=== PATIENT | male | born 1940 | race Two or more races ===

== ENCOUNTER 2020-06-25 18:38 | Inpatient (IN) | payer OTHER ==
[~2020-06-25] VITALS: Ht 175.3 cm; Wt 103.5 kg
[~2020-06-25 18:38] MED LIST: FURO1TAB31; METO25TA36; POTA8TAB2
[2020-06-25] MEDS ORDERED: FUROSEMIDE 40 MG/4 ML VIAL IV ONE (18:45)
[2020-06-25] MEDS ORDERED: DexAMETHasone SOD PHOS 10MG/1ML VIAL INJ IV ONE (18:45)
[2020-06-25 18:50] VITALS: BP 129/71
[2020-06-25 19:08] LABS: Basophils # (auto) 0.1 10 ^3/uL (0-0.2); Basophils % (auto) 0.8 % (0.0-2.0); Eosinophils # (auto) 0.5 10 ^3/uL (0-0.8); Eosinophils % (auto) 3.7 % (0.0-7.0); Hematocrit 44.6 % (41.0-53.0); Hemoglobin 14.8 g/dL (13.5-17.5); Lymphocytes # (auto) 4.7 10 ^3/uL (0.4-5.4); Lymphocytes % (auto) 36.5 % (10.0-50.0); Mean Corpuscular Hemoglobin 33.1 pg (28.0-32.0); Mean Corpuscular Hgb Conc. 33.3 g/dL (32.0-36.0); Mean Corpuscular Volume 99.4 fL (80.0-100.0); Monocytes # (auto) 1.1 10 ^3/uL (0-1.3); Monocytes % (auto) 8.1 % (0.0-12.0); Neutrophils # (auto) 6.6 10 ^3/uL (1.6-8.6); Neutrophils % (auto) 50.9 % (37.0-80.0); Nucleated Red Blood Cells % 0.1 %; Red Blood Cells 4.49 10^6/uL (4.5-5.90); Red Cell Distribution Width 16.2 % (11.8-14.3)
[2020-06-25 19:25] LABS: Potassium 3.7 mmol/L (3.5-5.1)
[2020-06-25 19:26] LABS: Lactic Acid w/Reflex 5.8 mmol/L (0.4-2.0)
[2020-06-25 19:39] LABS: Albumin 3.9 g/dL (3.4-5.0); BUN/Creatinine Ratio 19.2; Bilirubin, Total 0.5 mg/dL (0.2-1.0); Calcium 8.5 mg/dL (8.5-10.1); Magnesium 2.2 mg/dL (1.6-2.6); Total Protein 7.7 g/dL (6.4-8.2)
[2020-06-25 19:42] LABS: Urine Bacteria NONE SEEN /hpf (None Seen); Urine Blood Negative /uL (Negative); Urine Hyaline Cast FEW /lpf (0 - 2); Urine Specific Gravity 1.013 (1.001-1.035); Urine WBC 1 /hpf (0 - 3)
[2020-06-25] MEDS ORDERED: DOXYCYCLINE 100MG/250ML 250 ML IV ONE (20:00)
[2020-06-25] MEDS ORDERED: AZITHROMYCIN 500MG/ 250ML 250 ML IV ONE (20:00)
[2020-06-25 20:10] VITALS: BP 124/76
[2020-06-25 22:01] VITALS: BP 85/44
[2020-06-25 22:29] LABS: INR 1.03 (0.9-1.15); Partial Thromboplastin Time 26.7 sec (23.0-31.2)
[2020-06-25] MEDS ORDERED: NITROGLYCERIN 0.4 MG SL TAB SL PRN (22:30)
[2020-06-25] MEDS ORDERED: ACETAMINOPHEN 325 MG TAB PO PRN (22:30)
[2020-06-25] MEDS ORDERED: ONDANSETRON HCL 4 MG/2 ML VIAL IV PRN (22:30)
[2020-06-25] MEDS ORDERED: MORPHINE SULFATE INJECTION 2 MG/ML SYRG IV PRN (22:30)
[2020-06-25] MEDS ORDERED: DEXTROSE (50%) 50ML SYRG IV PRN (22:30)
[2020-06-25] MEDS ORDERED: ALBUTEROL SULF HFA 90MCG INH 200DOSE IN PRN (22:30)
[2020-06-25] MEDS ORDERED: MORPHINE SULFATE 4 MG/ML SYR/VIAL IV PRN (22:30)
[2020-06-25] MEDS ORDERED: HYDROcodone-ACET 5/325MG TAB PO PRN (22:30)
[2020-06-25] MEDS ORDERED: DOCUSATE SOD 100 MG CAP PO PRN (22:30)
[2020-06-25 23:02] VITALS: BP 124/76
[2020-06-25 23:50] VITALS: BP 105/61
[2020-06-26] VITALS (7 sets, daily range): BP systolic 103–124; BP diastolic 61–85
[2020-06-26] MEDS: SODIUM CHLOR 0.9% PF (SALINE LOCK) 10ML VIAL/SYR IV SCH ×3 (06:20→22:50)
[2020-06-26] MEDS: InsuLIN REG 1unit/0.01ml Soln (100units/ml) SC SCH ×4 (06:22→22:00)
[2020-06-26] MEDS: ACCU-CHEK COMFORT CURVE STRIP VI SCH ×4 (06:25→22:52)
[2020-06-26 08:12] LABS: Albumin 3.5 g/dL (3.4-5.0); Calcium 8.6 mg/dL (8.5-10.1); Potassium 4.4 mmol/L (3.5-5.1)
[2020-06-26 08:19] LABS: BUN/Creatinine Ratio 25.7; Bilirubin, Total 0.8 mg/dL (0.2-1.0); Total Protein 7.1 g/dL (6.4-8.2)
[2020-06-26 09:09] LABS: Basophils # (auto) 0 10 ^3/uL (0-0.2); Basophils % (auto) 0.2 % (0.0-2.0); Eosinophils # (auto) 0 10 ^3/uL (0-0.8); Hemoglobin 13.7 g/dL (13.5-17.5); Lymphocytes # (auto) 0.9 10 ^3/uL (0.4-5.4); Lymphocytes % (auto) 9.9 % (10.0-50.0); Mean Corpuscular Hemoglobin 32.9 pg (28.0-32.0); Mean Corpuscular Hgb Conc. 33.3 g/dL (32.0-36.0); Mean Corpuscular Volume 98.6 fL (80.0-100.0); Monocytes # (auto) 0.3 10 ^3/uL (0-1.3); Monocytes % (auto) 3.4 % (0.0-12.0); Neutrophils # (auto) 7.5 10 ^3/uL (1.6-8.6); Neutrophils % (auto) 86.5 % (37.0-80.0); Nucleated Red Blood Cells % 0.1 %; Red Blood Cells 4.16 10^6/uL (4.5-5.90); Red Cell Distribution Width 15.9 % (11.8-14.3); White Blood Cell 8.7 10^3/uL (4.4-10.8)
[2020-06-26] MEDS: FAMOTIDINE (10MG/ML) 2ML VL IV SCH ×2 (09:23→22:49)
[2020-06-26] MEDS: DOXYCYCLINE 100MG/250ML 250 ML IV SCH ×2 (09:23→22:50)
[2020-06-26] MEDS: ZINC SULFATE 220mg CAP or TAB PO SCH (09:24)
[2020-06-26] MEDS: CHOLECALCIFEROL (VITD3) 2,000 UNIT CAP/TAB PO SCH (09:24)
[2020-06-26] MEDS: MULTIPLE VITAMIN TAB PO SCH (09:24)
[2020-06-26] MEDS: ASCORBIC ACID 500 MG TAB PO SCH ×2 (09:24→22:52)
[2020-06-26] MEDS ORDERED: HEPARIN SODIUM (PORCINE) 5000 UNITS/ML 1ML VIAL SC SCH (10:00)
[2020-06-26] MEDS ORDERED: DexAMETHasone SOD PHOS 10MG/1ML VIAL INJ IV SCH (10:00)
[2020-06-26] MEDS ORDERED: BUDESONIDE (INHALATION) 180 MCG IH IN SCH (10:00)
[2020-06-26] MEDS ORDERED: FUROSEMIDE 40 MG/4 ML VIAL IV SCH (10:00)
[2020-06-26] MEDS ORDERED: HEPARIN SODIUM (PORCINE) 5000 UNITS/ML 1ML VIAL IV ONE (10:15)
[2020-06-26] MEDS ORDERED: CLOPIDOGREL 300 MG TAB PO ONE (10:15)
[2020-06-26 10:26] LABS: INR 1.03 (0.9-1.15); Partial Thromboplastin Time 26.5 sec (23.0-31.2)
[2020-06-26] MEDS ORDERED: HEPARIN DRIP/D5W 100UNITS/ML 250 ML IV SCH (10:30)
[2020-06-26] MEDS ORDERED: ASPirin 81 mg TAB PO ONE (10:30)
[2020-06-26] MEDS ORDERED: MORPHINE SULFATE INJECTION 2 MG/ML SYRG IV PRN (14:00)
[2020-06-26] MEDS: FUROSEMIDE 40 MG/4 ML VIAL IV SCH (18:01)
[2020-06-26 19:30] LABS: INR 1.08 (0.9-1.15)
[2020-06-26 19:57] LABS: Partial Thromboplastin Time 84.6 sec (23.0-31.2)
[2020-06-26] MEDS: BUDESONIDE (INHALATION) 0.5 MG/2 ML NEB NEB SCH (22:00)
[2020-06-26] MEDS: methylPREDNISolone SOD SUCC 40 MG/ML VL IV SCH (22:50)
[2020-06-26] MEDS: SACUBITRIL-VALSARTAN 24mg/26mg TAB PO SCH (22:51)
[2020-06-26] MEDS: CARVEDILOL 3.125 MG TAB PO SCH (22:51)
[2020-06-27 00:50] LABS: INR 1.1 (0.9-1.15); Partial Thromboplastin Time 64.9 sec (23.0-31.2)
[2020-06-27 04:57] VITALS: BP 110/69
[2020-06-27] MEDS: FUROSEMIDE 40 MG/4 ML VIAL IV SCH ×2 (05:30→18:13)
[2020-06-27] MEDS: SODIUM CHLOR 0.9% PF (SALINE LOCK) 10ML VIAL/SYR IV SCH ×3 (05:31→21:20)
[2020-06-27 06:17] LABS: Urine Bacteria FEW /hpf (None Seen); Urine Blood 3+ /uL (Negative); Urine Specific Gravity 1.018 (1.001-1.035); Urine WBC 1380 /hpf (0 - 3); Urine WBC Clumps PRESENT /hpf (None Seen)
[2020-06-27] MEDS: InsuLIN REG 1unit/0.01ml Soln (100units/ml) SC SCH ×4 (06:30→21:23)
[2020-06-27] MEDS: ACCU-CHEK COMFORT CURVE STRIP VI SCH ×4 (06:30→21:22)
[2020-06-27 07:05] LABS: Basophils # (auto) 0 10 ^3/uL (0-0.2); Basophils % (auto) 0.1 % (0.0-2.0); Eosinophils # (auto) 0 10 ^3/uL (0-0.8); Lymphocytes # (auto) 0.7 10 ^3/uL (0.4-5.4); Lymphocytes % (auto) 5.1 % (10.0-50.0); Mean Corpuscular Hemoglobin 32.9 pg (28.0-32.0); Mean Corpuscular Hgb Conc. 33.3 g/dL (32.0-36.0); Mean Corpuscular Volume 98.8 fL (80.0-100.0); Monocytes # (auto) 0.4 10 ^3/uL (0-1.3); Monocytes % (auto) 2.9 % (0.0-12.0); Neutrophils # (auto) 12.8 10 ^3/uL (1.6-8.6); Neutrophils % (auto) 91.9 % (37.0-80.0); Nucleated Red Blood Cells % 0.1 %; Red Blood Cells 4.25 10^6/uL (4.5-5.90); Red Cell Distribution Width 16.5 % (11.8-14.3)
[2020-06-27 07:12] LABS: INR 1.08 (0.9-1.15); Partial Thromboplastin Time 65.5 sec (23.0-31.2)
[2020-06-27 07:17] LABS: Albumin 3.5 g/dL (3.4-5.0); Calcium 8.6 mg/dL (8.5-10.1); Magnesium 2.2 mg/dL (1.6-2.6); Potassium 3.8 mmol/L (3.5-5.1)
[2020-06-27] MEDS: ALBUTEROL SULF 2.5 MG/0.5ML(0.5%) NEB SOLN NEB PRN (07:23)
[2020-06-27 07:24] LABS: BUN/Creatinine Ratio 25.7; Bilirubin, Total 0.8 mg/dL (0.2-1.0); Total Protein 6.8 g/dL (6.4-8.2)
[2020-06-27] MEDS: BUDESONIDE (INHALATION) 0.5 MG/2 ML NEB NEB SCH ×2 (07:24→19:37)
[2020-06-27 08:00] VITALS: BP 112/82
[2020-06-27] MEDS: CHOLECALCIFEROL (VITD3) 2,000 UNIT CAP/TAB PO SCH (08:04)
[2020-06-27] MEDS: ZINC SULFATE 220mg CAP or TAB PO SCH (08:04)
[2020-06-27] MEDS: MULTIPLE VITAMIN TAB PO SCH (08:04)
[2020-06-27] MEDS: FAMOTIDINE (10MG/ML) 2ML VL IV SCH ×2 (08:04→21:20)
[2020-06-27] MEDS: ASCORBIC ACID 500 MG TAB PO SCH ×2 (08:05→21:22)
[2020-06-27] MEDS: ASPirin 81 mg TAB PO SCH (08:05)
[2020-06-27] MEDS: methylPREDNISolone SOD SUCC 40 MG/ML VL IV SCH ×2 (08:05→21:20)
[2020-06-27] MEDS: CARVEDILOL 3.125 MG TAB PO SCH ×2 (08:10→21:21)
[2020-06-27 08:34] VITALS: BP 112/82
[2020-06-27] MEDS ORDERED: LIDOCAINE 2%HCL (LOCAL ANESTH.) INJ 20ML MDV ONE (10:37)
[2020-06-27] MEDS ORDERED: IODIXANOL 320MG/ML 100ML BTL IV ONE ×3 (10:37→12:35)
[2020-06-27] MEDS ORDERED: ANGIOMAX 250 MG VIAL IV ONE (10:48)
[2020-06-27] MEDS ORDERED: fentaNYL CITRATE 100 MCG/2 ML VL ONE (10:48)
[2020-06-27] MEDS ORDERED: MIDAZOLAM HCL 2MG/2ML 2ml VIAL (1mg/ml) ONE (10:49)
[2020-06-27] MEDS ORDERED: SODIUM CHL 0.9% 0 ML ONE (10:49)
[2020-06-27] MEDS ORDERED: VERAPAMIL 2.5MG/ML INJ 2ML VIAL IV ONE (11:25)
[2020-06-27] MEDS ORDERED: HEPARIN SODIUM (PORCINE) 5000 UNITS/ML 1ML VIAL ONE (11:25)
[2020-06-27] MEDS ORDERED: CLOPIDOGREL 300 MG TAB ONE (12:39)
[2020-06-27] MEDS ORDERED: ASPirin 325 MG TAB ONE (12:41)
[2020-06-27] MEDS: DOXYCYCLINE 100MG/250ML 250 ML IV SCH ×2 (14:35→21:20)
[2020-06-27] MEDS: SACUBITRIL-VALSARTAN 24mg/26mg TAB PO SCH ×2 (14:38→21:21)
[2020-06-27] MEDS ORDERED: SODIUM CHLORIDE 0.9% 500 ML IV ONE (16:00)
[2020-06-27 17:00] VITALS: BP 100/36
[2020-06-27 22:37] LABS: INR 1.08 (0.9-1.15); Partial Thromboplastin Time 26.3 sec (23.0-31.2)
[2020-06-28 05:00] VITALS: BP 120/60
[2020-06-28] MEDS: FUROSEMIDE 40 MG/4 ML VIAL IV SCH ×2 (07:00→17:49)
[2020-06-28] MEDS: SODIUM CHLOR 0.9% PF (SALINE LOCK) 10ML VIAL/SYR IV SCH ×3 (07:00→23:08)
[2020-06-28] MEDS: ACCU-CHEK COMFORT CURVE STRIP VI SCH ×4 (07:01→23:10)
[2020-06-28] MEDS: InsuLIN REG 1unit/0.01ml Soln (100units/ml) SC SCH ×4 (07:03→23:10)
[2020-06-28] MEDS: BUDESONIDE (INHALATION) 0.5 MG/2 ML NEB NEB SCH ×2 (07:45→19:38)
[2020-06-28] MEDS: ALBUTEROL SULF 2.5 MG/0.5ML(0.5%) NEB SOLN NEB PRN ×2 (07:47→19:38)
[2020-06-28] MEDS: IPRATROPIUM BROM 0.5 MG/2.5ML INH SOL NEB PRN ×2 (07:47→19:38)
[2020-06-28 08:18] LABS: Basophils # (auto) 0 10 ^3/uL (0-0.2); Eosinophils # (auto) 0 10 ^3/uL (0-0.8); Hematocrit 43.7 % (41.0-53.0); Hemoglobin 14.7 g/dL (13.5-17.5); Lymphocytes # (auto) 0.9 10 ^3/uL (0.4-5.4); Lymphocytes % (auto) 5.4 % (10.0-50.0); Mean Corpuscular Hemoglobin 33.1 pg (28.0-32.0); Mean Corpuscular Hgb Conc. 33.6 g/dL (32.0-36.0); Mean Corpuscular Volume 98.3 fL (80.0-100.0); Monocytes # (auto) 0.8 10 ^3/uL (0-1.3); Monocytes % (auto) 4.8 % (0.0-12.0); Neutrophils # (auto) 14.5 10 ^3/uL (1.6-8.6); Neutrophils % (auto) 89.8 % (37.0-80.0); Nucleated Red Blood Cells % 0.1 %; Red Blood Cells 4.45 10^6/uL (4.5-5.90); Red Cell Distribution Width 16.1 % (11.8-14.3); White Blood Cell 16.2 10^3/uL (4.4-10.8)
[2020-06-28 08:42] LABS: Calcium 8.7 mg/dL (8.5-10.1); Potassium 3.6 mmol/L (3.5-5.1)
[2020-06-28 09:00] VITALS: BP 119/59
[2020-06-28 09:08] LABS: Cholesterol 146 mg/dL (< 200); HDL Cholesterol 73 mg/dL (40-59); LDL Cholesterol 68 mg/dL (< 100); Triglycerides 49 mg/dL (< 150)
[2020-06-28] MEDS ORDERED: ENOXAPARIN SOD 30 MG/0.3 ML SYRINGE SC SCH (10:00)
[2020-06-28] MEDS: DOXYCYCLINE 100MG/250ML 250 ML IV SCH ×2 (11:14→22:54)
[2020-06-28] MEDS: FAMOTIDINE (10MG/ML) 2ML VL IV SCH ×2 (11:14→23:08)
[2020-06-28] MEDS: methylPREDNISolone SOD SUCC 40 MG/ML VL IV SCH ×2 (11:14→23:08)
[2020-06-28] MEDS: ASPirin 81 mg TAB PO SCH (11:15)
[2020-06-28] MEDS: CHOLECALCIFEROL (VITD3) 2,000 UNIT CAP/TAB PO SCH (11:15)
[2020-06-28] MEDS: MULTIPLE VITAMIN TAB PO SCH (11:15)
[2020-06-28] MEDS: ZINC SULFATE 220mg CAP or TAB PO SCH (11:15)
[2020-06-28] MEDS: SACUBITRIL-VALSARTAN 24mg/26mg TAB PO SCH ×3 (11:15→23:52)
[2020-06-28] MEDS: ASCORBIC ACID 500 MG TAB PO SCH ×2 (11:15→23:09)
[2020-06-28] MEDS: CLOPIDOGREL BISULFATE 75 MG TAB PO SCH (11:16)
[2020-06-28] MEDS: CARVEDILOL 3.125 MG TAB PO SCH ×2 (11:16→23:09)
[2020-06-28 13:00] VITALS: BP 107/63
[2020-06-28 13:14] VITALS: BP 119/59
[2020-06-28 17:00] VITALS: BP 110/68
[2020-06-28 22:00] VITALS: BP 107/66
[2020-06-28] MEDS: ATORVASTATIN 20 MG TAB PO SCH (23:09)
[2020-06-29 04:55] VITALS: BP 136/99
[2020-06-29] MEDS: ACCU-CHEK COMFORT CURVE STRIP VI SCH ×4 (06:10→21:34)
[2020-06-29] MEDS: FUROSEMIDE 40 MG/4 ML VIAL IV SCH ×2 (06:10→19:00)
[2020-06-29] MEDS: SODIUM CHLOR 0.9% PF (SALINE LOCK) 10ML VIAL/SYR IV SCH ×3 (06:10→21:35)
[2020-06-29] MEDS: InsuLIN REG 1unit/0.01ml Soln (100units/ml) SC SCH ×4 (06:11→21:34)
[2020-06-29 07:58] LABS: Basophils # (auto) 0 10 ^3/uL (0-0.2); Basophils % (auto) 0.1 % (0.0-2.0); Eosinophils # (auto) 0 10 ^3/uL (0-0.8); Hematocrit 46.1 % (41.0-53.0); Hemoglobin 15.3 g/dL (13.5-17.5); Lymphocytes # (auto) 0.8 10 ^3/uL (0.4-5.4); Lymphocytes % (auto) 5.3 % (10.0-50.0); Mean Corpuscular Hemoglobin 32.5 pg (28.0-32.0); Mean Corpuscular Hgb Conc. 33.2 g/dL (32.0-36.0); Mean Corpuscular Volume 97.9 fL (80.0-100.0); Monocytes # (auto) 0.6 10 ^3/uL (0-1.3); Neutrophils # (auto) 13.3 10 ^3/uL (1.6-8.6); Neutrophils % (auto) 90.6 % (37.0-80.0); Nucleated Red Blood Cells % 0.1 %; Red Blood Cells 4.71 10^6/uL (4.5-5.90); White Blood Cell 14.7 10^3/uL (4.4-10.8)
[2020-06-29 08:08] LABS: INR 1.03 (0.9-1.15); Partial Thromboplastin Time 27.9 sec (23.0-31.2)
[2020-06-29 08:09] LABS: Potassium 3.6 mmol/L (3.5-5.1)
[2020-06-29 08:20] LABS: Albumin 3.3 g/dL (3.4-5.0); Bilirubin, Total 0.8 mg/dL (0.2-1.0); Calcium 8.6 mg/dL (8.5-10.1); Total Protein 6.9 g/dL (6.4-8.2)
[2020-06-29 09:00] VITALS: BP 126/69
[2020-06-29] MEDS: DOXYCYCLINE 100MG/250ML 250 ML IV SCH ×2 (10:00→21:35)
[2020-06-29] MEDS: ZINC SULFATE 220mg CAP or TAB PO SCH (10:00)
[2020-06-29] MEDS: ASCORBIC ACID 500 MG TAB PO SCH ×2 (10:00→21:34)
[2020-06-29] MEDS: CHOLECALCIFEROL (VITD3) 2,000 UNIT CAP/TAB PO SCH (10:00)
[2020-06-29] MEDS: FAMOTIDINE (10MG/ML) 2ML VL IV SCH ×2 (10:00→21:34)
[2020-06-29] MEDS: methylPREDNISolone SOD SUCC 40 MG/ML VL IV SCH ×2 (10:00→21:34)
[2020-06-29] MEDS: SACUBITRIL-VALSARTAN 24mg/26mg TAB PO SCH ×3 (10:00→22:28)
[2020-06-29] MEDS: CARVEDILOL 3.125 MG TAB PO SCH ×2 (10:00→22:27)
[2020-06-29] MEDS: MULTIPLE VITAMIN TAB PO SCH (10:00)
[2020-06-29] MEDS: CALCITRIOL 3 MCG/GM TOP SCH (10:00)
[2020-06-29] MEDS: ASPirin 81 mg TAB PO SCH (10:00)
[2020-06-29] MEDS: CLOPIDOGREL BISULFATE 75 MG TAB PO SCH (10:00)
[2020-06-29] MEDS: BUDESONIDE (INHALATION) 0.5 MG/2 ML NEB NEB SCH ×2 (10:37→18:56)
[2020-06-29] MEDS ORDERED: LIDOCAINE 2%HCL (LOCAL ANESTH.) INJ 20ML MDV ONE (11:12)
[2020-06-29] MEDS ORDERED: IOHEXOL 350 MG/ML 100ML IJ ONE (11:12)
[2020-06-29] MEDS ORDERED: MIDAZOLAM HCL 2MG/2ML 2ml VIAL (1mg/ml) ONE (11:23)
[2020-06-29] MEDS ORDERED: ANGIOMAX 250 MG VIAL IV ONE ×2 (11:23→12:19)
[2020-06-29] MEDS ORDERED: fentaNYL CITRATE 100 MCG/2 ML VL ONE (11:23)
[2020-06-29] MEDS ORDERED: ATROPINE SULF 1 MG/10ml SYR ONE (11:23)
[2020-06-29] MEDS ORDERED: ONDANSETRON HCL 4 MG/2 ML VIAL ONE (11:23)
[2020-06-29] MEDS ORDERED: SODIUM CHL 0.9% 50 ML ONE ×2 (11:23→12:19)
[2020-06-29] MEDS ORDERED: VERAPAMIL 2.5MG/ML INJ 2ML VIAL IV ONE (13:07)
[2020-06-29] MEDS ORDERED: CLOPIDOGREL BISULFATE 75 MG TAB ONE (13:30)
[2020-06-29] MEDS ORDERED: ASPirin 81 mg TAB ONE (13:31)
[2020-06-29] MEDS ORDERED: FUROSEMIDE 20 MG/2 ML VIAL IV ONE (14:00)
[2020-06-29] MEDS ORDERED: IPRATROPIUM BROM 0.5 MG/2.5ML INH SOL NEB ONE (14:00)
[2020-06-29 15:43] LABS: Basophils # (auto) 0 10 ^3/uL (0-0.2); Basophils % (auto) 0.1 % (0.0-2.0); Eosinophils # (auto) 0 10 ^3/uL (0-0.8); Eosinophils % (auto) 0.1 % (0.0-7.0); Hematocrit 45.5 % (41.0-53.0); Hemoglobin 15.1 g/dL (13.5-17.5); Lymphocytes # (auto) 0.8 10 ^3/uL (0.4-5.4); Lymphocytes % (auto) 5.9 % (10.0-50.0); Mean Corpuscular Hemoglobin 32.7 pg (28.0-32.0); Mean Corpuscular Hgb Conc. 33.2 g/dL (32.0-36.0); Mean Corpuscular Volume 98.6 fL (80.0-100.0); Monocytes # (auto) 0.9 10 ^3/uL (0-1.3); Monocytes % (auto) 6.6 % (0.0-12.0); Neutrophils # (auto) 11.6 10 ^3/uL (1.6-8.6); Neutrophils % (auto) 87.3 % (37.0-80.0); Nucleated Red Blood Cells % 0.1 %; Red Blood Cells 4.61 10^6/uL (4.5-5.90); Red Cell Distribution Width 16.8 % (11.8-14.3); White Blood Cell 13.2 10^3/uL (4.4-10.8)
[2020-06-29 16:44] VITALS: BP 113/61
[2020-06-29] MEDS: LEVALBUTEROL HCL 1.25 MG/3 ML NEB NEB SCH (18:56)
[2020-06-29] MEDS: ATORVASTATIN 20 MG TAB PO SCH (21:34)
[2020-06-29 22:00] VITALS: BP 97/60
[2020-06-30] MEDS: LEVALBUTEROL HCL 1.25 MG/3 ML NEB NEB SCH ×4 (00:13→18:57)
[2020-06-30 04:40] VITALS: BP 93/57
[2020-06-30] MEDS: SODIUM CHLOR 0.9% PF (SALINE LOCK) 10ML VIAL/SYR IV SCH ×2 (05:27→15:46)
[2020-06-30] MEDS: FUROSEMIDE 40 MG/4 ML VIAL IV SCH ×2 (05:35→18:00)
[2020-06-30] MEDS: ACCU-CHEK COMFORT CURVE STRIP VI SCH ×3 (06:06→17:57)
[2020-06-30] MEDS: InsuLIN REG 1unit/0.01ml Soln (100units/ml) SC SCH ×3 (06:06→18:02)
[2020-06-30 07:06] LABS: Basophils # (auto) 0 10 ^3/uL (0-0.2); Basophils % (auto) 0.2 % (0.0-2.0); Eosinophils # (auto) 0 10 ^3/uL (0-0.8); Hematocrit 42.5 % (41.0-53.0); Hemoglobin 14.3 g/dL (13.5-17.5); Lymphocytes # (auto) 0.5 10 ^3/uL (0.4-5.4); Lymphocytes % (auto) 4.3 % (10.0-50.0); Mean Corpuscular Hemoglobin 32.8 pg (28.0-32.0); Mean Corpuscular Hgb Conc. 33.5 g/dL (32.0-36.0); Mean Corpuscular Volume 97.8 fL (80.0-100.0); Monocytes # (auto) 0.5 10 ^3/uL (0-1.3); Monocytes % (auto) 4.3 % (0.0-12.0); Neutrophils % (auto) 91.2 % (37.0-80.0); Nucleated Red Blood Cells % 0.3 %; Red Blood Cells 4.34 10^6/uL (4.5-5.90); Red Cell Distribution Width 16.3 % (11.8-14.3); White Blood Cell 12.1 10^3/uL (4.4-10.8)
[2020-06-30] MEDS: BUDESONIDE (INHALATION) 0.5 MG/2 ML NEB NEB SCH ×2 (07:17→18:57)
[2020-06-30] MEDS: ALBUTEROL SULF 2.5 MG/0.5ML(0.5%) NEB SOLN NEB PRN (07:17)
[2020-06-30] MEDS: IPRATROPIUM BROM 0.5 MG/2.5ML INH SOL NEB PRN (07:17)
[2020-06-30 07:20] LABS: BUN/Creatinine Ratio 40.2; Calcium 8.2 mg/dL (8.5-10.1); Potassium 3.6 mmol/L (3.5-5.1)
[2020-06-30 08:00] VITALS: BP 103/63
[2020-06-30 08:42] VITALS: BP 103/63
[2020-06-30] MEDS: CARVEDILOL 3.125 MG TAB PO SCH (10:00)
[2020-06-30] MEDS: CALCITRIOL 3 MCG/GM TOP SCH (10:00)
[2020-06-30] MEDS: SACUBITRIL-VALSARTAN 24mg/26mg TAB PO SCH (10:00)
[2020-06-30] MEDS: CHOLECALCIFEROL (VITD3) 2,000 UNIT CAP/TAB PO SCH (11:21)
[2020-06-30] MEDS: ASPirin 81 mg TAB PO SCH (11:21)
[2020-06-30] MEDS: ZINC SULFATE 220mg CAP or TAB PO SCH (11:21)
[2020-06-30] MEDS: methylPREDNISolone SOD SUCC 40 MG/ML VL IV SCH (11:21)
[2020-06-30] MEDS: ASCORBIC ACID 500 MG TAB PO SCH (11:22)
[2020-06-30] MEDS: MULTIPLE VITAMIN TAB PO SCH (11:22)
[2020-06-30] MEDS: FAMOTIDINE (10MG/ML) 2ML VL IV SCH (11:22)
[2020-06-30] MEDS: DOXYCYCLINE 100MG/250ML 250 ML IV SCH (11:24)
[2020-06-30] MEDS: CLOPIDOGREL BISULFATE 75 MG TAB PO SCH (11:24)
[2020-06-30] MEDS ORDERED: ALBUMIN 25% 100 ML IV ONE (12:15)
[2020-06-30 13:00] VITALS: BP 102/55
[2020-06-30 17:00] VITALS: BP 99/53
[2020-06-30 18:40] VITALS: BP 99/53
== END 2020-06-30 21:08 | disposition short-term general hospital (02) | DRG 853 ==
LOC: ER 18:40 → TELE 22:32 → TELE-EAST 06-26 01:30
PROVIDERS: ADMIT Nurse Practitioner Family; ATTEND Internal Medicine
PROC: B2111ZZ Fluoroscopy of Multiple Coronary Arteries using Low Osmolar Contrast (ICD-10-PCS; 2020-06-27)
PROC: 4A023N7 Measurement of Cardiac Sampling and Pressure, Left Heart, Percutaneous Approach (ICD-10-PCS; 2020-06-27)
PROC: B2151ZZ Fluoroscopy of Left Heart using Low Osmolar Contrast (ICD-10-PCS; 2020-06-27)
PROC: 02703ZZ Dilation of Coronary Artery, One Artery, Percutaneous Approach (ICD-10-PCS; 2020-06-27)
PROC: B240ZZ3 Ultrasonography of Single Coronary Artery, Intravascular (ICD-10-PCS; 2020-06-27)
PROC: 02703DZ Dilation of Coronary Artery, One Artery with Intraluminal Device, Percutaneous Approach (ICD-10-PCS; principal; 2020-06-29)
PROC: X2C0361 Extirpation of Matter from Coronary Artery, One Artery using Orbital Atherectomy Technology, Percutaneous Approach, New Technology Group 1 (ICD-10-PCS; 2020-06-29)
DX: A41.9 Sepsis, unspecified organism (principal); I21.4 Non-ST elevation (NSTEMI) myocardial infarction; J96.01 Acute respiratory failure with hypoxia; J15.6 Pneumonia due to other Gram-negative bacteria; I50.23 Acute on chronic systolic (congestive) heart failure; I42.0 Dilated cardiomyopathy; J44.1 Chronic obstructive pulmonary disease with (acute) exacerbation; J44.0 Chronic obstructive pulmonary disease with (acute) lower respiratory infection; E11.9 Type 2 diabetes mellitus without complications; I11.0 Hypertensive heart disease with heart failure; E66.9 Obesity, unspecified; E78.5 Hyperlipidemia, unspecified; I25.10 Atherosclerotic heart disease of native coronary artery without angina pectoris; I44.7 Left bundle-branch block, unspecified; N28.9 Disorder of kidney and ureter, unspecified; Z20.822 Contact with and (suspected) exposure to COVID-19; Z79.82 Long term (current) use of aspirin; Z68.35 Body mass index [BMI] 35.0-35.9, adult; Z82.49 Family history of ischemic heart disease and other diseases of the circulatory system; Z86.16 Personal history of COVID-19
CPT/HCPCS: 36415; 36600; 71045; 78582; 80048; 80053; 80061; 81001; 82728; 82805; 82962; 83036; 83605; 83615; 83735; 83880; 84443; 84484; 85025; 85379; 85610; 85730; 86141; 86850; 86900; 86901; 87040; 87086; 87426; 92920; 92933; 92978; 93005; 93306; 93458; 93970; 94640; 94660; 96365; 96367; 96375; 99152; 99153; 99291; C1724; C1769; C1874; C1887; G0378; J1100; J1815; J2250; J2405; J3490; P9047; Q9967